=== PATIENT | male | born 1950 | race African-American/Black ===

== ENCOUNTER 2016-12-03 19:26 | Emergency (ER) | payer MEDICARE ==
[~2016-12-03] VITALS: Ht 195.6 cm; Wt 244.9 kg
--- NOTE | ~2016-12-03 | EKG ---
PATIENT: MYRA ROSS UNIT #: [id number] Ventricular Rate: 62 BPM Atrial Rate: 62 BPM P-R Interval: 188 ms QRS Duration: 82 ms Q-T Interval: 428 ms QTC Calculation(Bezet): 434 ms P [place]: 52 degrees Calculated R [place]: 14 degrees Calculated T [place]: 68 degrees Diagnosis Line: Normal sinus rhythm Diagnosis Line: Normal ECG Diagnosis Line: Diagnosis Line: Confirmed by ESTEBAN HERR MD ([id number]) on Diagnosis Line: 12/08/2016 8:38:43 AM INTERPRETING MD: CARMENZA PEÑA
--- NOTE | ~2016-12-03 | CR72 ---
[facility] A Service of [facility] RADIOLOGY TEXT RESULTS PATIENT: MYRA ROSS JR LOCATION: SED : 46 UNIT #: [id number] AGE: [address]: Pavan Mayorga DO SEX: M ORDER DR: [id number] [address] [address] [id number] MR#: [id number] Acc #: [id number] NAME: MYRA ROSS JR : 1950 SEX: M STUDY DATE/TIME: 12/03/2016 20:14 UNIT: SED ROOM: STUDY DESCRIPTION: CR Chest Single View Portable Attending Physician: Pavan Mayorga Ordering Physician: Pavan Mayorga MEDICAL IMAGING REPORT This report is preliminary unless electronic signature is present. EXAM Portable chest HISTORY Cough and shortness of air for 4 weeks. Bronchitis. Chest tightness. FINDINGS Cardiac size and pulmonary vascularity are within normal limits allowing for shallow inspiration. Underpenetration limits evaluation of lung detail, but no infiltrates or effusions are identified. IMPRESSION Negative Dictated by... Farzad Sterling M.D. THIS IS AN ELECTRONICALLY VERIFIED REPORT Farzad Sterling M.D. at 12/04/2016 1:20 PM DFL/myron TD: 12/04/2016 01:31 JOB #: [id number] MEDICAL IMAGING REPORT Page 1 of 1
[~2016-12-03 19:26] MED LIST: CLARITIN10 MG; COLCHICINE; COUMADIN5 MG PO; COUMADIN7.5 MG PO; DEBROX15 ML; FLOMAX0.4 M1 PO; IBUPROFEN; LASIX PO; LOPRESSOR PO; MEVACOR PO; NORVASC PO; POTASSIUM CHLO10 ME1 PO; PROTONIX PO; SIMVASTATIN20 MG PO; ZESTRIL30 MG PO; ZYLOPRIM PO
[2016-12-03] MEDS ORDERED: VITAMIN D350000 UNIT (19:48)
[2016-12-03 20:39] LABS: BASOPHIL% 0.5 % (0-2.5); EOSINOPHIL# 0.1 X10e3 (0-0.7); EOSINOPHIL% 1.9 % (0.0-7.0); HEMATOCRIT 45.4 % (38.0-50.0); LYMPHOCYTE% 13.8 % (17.0-45.0); MEAN CORPUSCULAR HEMOGLOBIN 31.8 PG (28-34); MEAN CORPUSCULAR HGB CONC 33.1 g/dL (30-36); MEAN PLATELET VOLUME 7.4 FL (6.5-11.5); MONOCYTE# 0.5 X10e3 (0-1.0); MONOCYTE% 6.9 % (3.0-12.0); NEUTROPHIL# 5.7 X10e3 (1.5-7.1); NEUTROPHIL% 76.9 % (40-75); PLATELET COUNT 197 X10e3 (140-420); RED BLOOD COUNT 4.73 X10e (3.90-5.60); RED CELL DISTRIBUTION WIDTH 14.1 % (11.0-15.5); WHITE BLOOD COUNT 7.4 X10e3 (4.0-10.5)
[2016-12-03 20:40] LABS: DIFF IND NO
[2016-12-03 20:48] LABS: INR 1.9; PROTHROMBIN TIME (PATIENT) 21.7 SECONDS (9.5-12.4)
[2016-12-03 20:55] LABS: PARTIAL THROMBOPLASTIN TIME 32.5 SECONDS (25.6-38.1)
[2016-12-03 20:57] LABS: POC - CKMB 2.1 ng/mL (0.0-7.9); POC - TROPONIN <0.05 ng/mL (<=0.05)
[2016-12-03 20:57] LABS: ALBUMIN SERUM 3.9 g/dL (3.5-5.0); BILIRUBIN, DIRECT 0.2 mg/dL (0.0-0.2); BILIRUBIN,INDIRECT 0.8 mg/dL (0.0-0.9); BUN/CREATININE RATIO 13.63; CALCIUM SERUM 9.1 mg/dL (8.4-10.2); CREATININE SERUM 1.1 mg/dL (0.6-1.4); GLOM FILT RATE Estimated 79.5 mL/min (>60); POTASSIUM 3.8 mmol/L (3.5-5.1); PROTEIN TOTAL SERUM 7.4 g/dL (6.0-8.3)
[2016-12-03 22:25] LABS: POC - CKMB 2.2 ng/mL (0.0-7.9); POC - TROPONIN <0.05 ng/mL (<=0.05)
== END 2016-12-04 00:22 | disposition home or self-care (01) ==
LOC: SED 19:26
PROVIDERS: Emergency Medicine
DX: J44.1 Chronic obstructive pulmonary disease with (acute) exacerbation (principal); E66.01 Morbid (severe) obesity due to excess calories; I48.91 Unspecified atrial fibrillation; I50.9 Heart failure, unspecified; Z90.49 Acquired absence of other specified parts of digestive tract; Z79.899 Other long term (current) drug therapy
CPT/HCPCS: 36415; 71010; 80048; 80076; 82553; 83880; 84484; 85025; 85610; 85730; 93005; 94640; 96374; 99285; J2930